=== PATIENT | male | born 1955 | race Caucasian/White ===

== ENCOUNTER → 2016-11-14 | Outpatient (CLI) | payer OTHER ==
--- NOTE | 2016-11-14 08:32 | US ---
Retroperitoneal Ultrasound History: Evaluate for abdominal aortic aneurysm, screening, , family history of abdominal aortic aneu rysm and coronary artery disease Findings: There is a minimal amount of atherosclerotic disease associated with a normal sized abdomin al aorta. Proximal aorta = 2.8 x 2.7 cm Mid aorta = 2.2 x 2.3 cm Distal aorta = 1.9 x 2 cm Right common iliac artery = 1.2 x 1.2 cm Left common iliac artery = 1 x 1 cm Impression: Early atherosclerotic disease. No aneurysm identified .
== END ==
LOC: BMCIMAGING 07:51
PROVIDERS: ATTEND Internal Medicine Cardiovascular Disease
DX: Z82.49 Family history of ischemic heart disease and other diseases of the circulatory system (principal); I25.10 Atherosclerotic heart disease of native coronary artery without angina pectoris; R07.9 Chest pain, unspecified; R00.2 Palpitations

== ENCOUNTER 2016-11-25 07:54 | Day surgery (SDC) | payer OTHER ==
[2016-11-25] MEDS ORDERED: FAMOTIDINE 20 MG TAB PO ONE (08:00)
[2016-11-25] MEDS ORDERED: DIAZEPAM 5 MG TAB PO ONE (08:00)
[2016-11-25] MEDS ORDERED: diphenhydrAMINE 25 MG CAP PO ONE (08:00)
[2016-11-25] MEDS ORDERED: ASPIRIN EC 325 MG TAB PO ONE (08:00)
[2016-11-25] MEDS ORDERED: NS 1,000 ML IV ONE (08:00)
--- NOTE | 2016-11-25 08:19 | CPEKG ---
Heart Rate: 89 RR Interval: 674 P-R Interval: 156 QRSD Interval: 88 QT Interval: 356 QTC Interval: 434 P Burke: 65 QRS Burke: 53 T Wave Burke: 18 EKG Severity - OTHERWISE NORMAL ECG - EKG Impression: SINUS ARRHYTHMIA, RATE 75-99 EKG Impression: VENTRICULAR PREMATURE COMPLEX Electronically Signed By: Brennan Chavez 25-Nov-2016 12:25:31
[2016-11-25 08:45] LABS: % IMMATURE GRANULYOCYTES 0.2 % (0.0-1.1); ABSOLUTE IMMATURE GRANULOCYTES 0.01 10^3/uL (0.00-0.10); ADD DIFF? NO; ADD MORPH? NO; ADD SCAN? NO; ATYPICAL LYMPHOCYTE FLAG 10 (0-99); FRAGMENT RBC FLAG 0 (0-99); HEMATOCRIT 45.4 % (40.0-51.0); HEMOGLOBIN 16.1 g/dL (13.7-17.5); LEFT SHIFT FLG 0 (0-99); LIPEMIA HEMOLYSIS FLAG 90 (0-99); MEAN CELL HEMOGLOBIN 30.5 pg (27.9-34.1); MEAN CELL HEMOGLOBIN CONCENTR. 35.5 g/dL (32.4-36.7); MEAN PLATELET VOLUME 9.1 fL (8.7-11.7); PLATELET CLUMPS FLAG 0 (0-99); PLATELET COUNT 207 10^3/uL (150-400); RED BLOOD CELL COUNT 5.28 10^6/uL (4.40-6.38); RED CELL DISTRIBUTION WIDTH 12.1 % (11.5-15.2)
[2016-11-25 08:57] LABS: INR 0.98 (0.83-1.16); PROTIME(PATIENT) 12.9 SEC (12.0-15.0)
[2016-11-25 09:05] LABS: ANION GAP 10 mEq/L (8-16); CALCIUM 9.5 mg/dL (8.5-10.4); CARBON DIOXIDE 26 mEq/l (22-31); CHLORIDE 106 mEq/L (97-110); CHOLESTEROL 135 mg/dL (140-220); CHOLESTEROL/HDL RATIO 2.45 RATIO (1.00-4.97); CREATININE 1.2 mg/dL (0.7-1.3); GLOMERULAR FILTRATION RATE > 60; GLUCOSE 96 mg/dL (70-100); HIGH DENSITY LIPOPROTEIN 55 mg/dL (40-65); LDL/HDL RATIO 1.18 RATIO (1.00-3.64); LOW DENSITY LIPOPROTEIN 65 mg/dL (80-100); MAGNESIUM 1.7 mg/dL (1.6-2.3); NON-HIGH DENSITY LIPOPROTEIN 80 mg/dL (90-129); POTASSIUM 4.7 mEq/L (3.5-5.2); SODIUM 142 mEq/L (134-144); TRIGLYCERIDE 76 mg/dL (40-150); VERY LOW DENSITY LIPOPROTEINS 15 mg/dL (8-25)
[2016-11-25] MEDS ORDERED: MIDAZOLAM 2 MG/2 ML VIAL ONE ×2 (09:17→09:52)
[2016-11-25] MEDS ORDERED: fentaNYL 100 MCG/2 ML INJ ONE (09:17)
[2016-11-25] MEDS ORDERED: HEPARIN 10,000 UNIT/10 ML MDV ONE (09:17)
[2016-11-25] MEDS ORDERED: LIDOCAINE 1% 30 ML SDV ONE (09:17)
[2016-11-25] MEDS ORDERED: VERAPAMIL 5 MG/2 ML VIAL ONE (09:17)
[2016-11-25] MEDS ORDERED: IOPAMIDOL (ISOVUE-370) 150 ML BTL IV ONE ×2 (09:17→09:52)
[2016-11-25] MEDS ORDERED: OXYCODONE/APAP 5/325 TAB PO PRN (11:08)
[2016-11-25] MEDS ORDERED: HYDROCODONE/APAP 5/325 TAB PO PRN (11:08)
[2016-11-25] MEDS ORDERED: ATROPINE SULFATE 1 MG/10 ML SYR IVP PRN (11:08)
[2016-11-25] MEDS ORDERED: ONDANSETRON 4 MG/2 ML VIAL IVP PRN (11:08)
[2016-11-25] MEDS ORDERED: NITROGLYCERIN 0.4 MG BTL SL PRN (11:08)
--- NOTE | 2016-11-25 15:38 | PDDXCAT ---
Diagnostic Cath Note - . Date: 11/25/16 Program Development Specialist: Jameson Indication: Class I/II angina, intolerance to med therapy or failure to respond High-risk criteria on non-invasive testing: stress-induced moderate-size multiple perfusion defects - Procedure Access: left wrist Procedure: left heart catheterization, coronary angiography, left ventriculogram , vein graft injection, DELONG injection, HERMINIA injection - Materials Left Heart Cath size: 5F Left Heart Cath materials: JL3.5, JR4.0, other (IM) - Findings-Left Heart Catheterization LM: 100% occluded LAD: 100% occluded: fed by the mammary artery LCX: 100% occluded RCA: Diffuse luminal regularities of 20%. No focal stenosis with patent stents Ramus: 100% occluded rSVG: widely patent to the obtuse marginal branch with retrograde filling of the circumflex system DELONG: widely patent to the LAD HERMINIA: widely patent to the ramus EDP: 13 mm of mercury LVEF: 65% Wall motion: small area of inferior akinesis Complications: technical difficulties: Inability to access the HERMINIA selectively Estimated blood loss: <50ml Closure method: TR Band Assessment: complete revascularization with patent left and right mammary arteries to the LAD and ramus with a patent vein graft to the circumflex. Patent RCA stenting. Severe coronary disease with occlusion of the left main. Normal left ventricular systolic function with normal filling pressures Plan: continue aggressive secondary prevention with clinical follow-up. Patient Problems: Problems Problem Status Diagnosed Coronary artery disease Acute
== END 2016-11-25 14:36 | disposition home or self-care (01) ==
LOC: FCATH 07:54
PROVIDERS: ATTEND Internal Medicine Interventional Cardiology
DX: I25.119 Atherosclerotic heart disease of native coronary artery with unspecified angina pectoris (principal); R00.2 Palpitations; R06.09 Other forms of dyspnea; I10 Essential (primary) hypertension; E78.5 Hyperlipidemia, unspecified; Z95.1 Presence of aortocoronary bypass graft; Z82.49 Family history of ischemic heart disease and other diseases of the circulatory system
CPT/HCPCS: 93005; 93459; C1769; J1644; J2250; J3010; Q9967

== ENCOUNTER → 2018-10-14 | Outpatient (CLI) | payer OTHER | LOC: FIMAGING 16:19 | DX: R22.41 Localized swelling, mass and lump, right lower limb (principal) ==

== ENCOUNTER → 2018-11-01 | Outpatient (CLI) | payer OTHER | LOC: FIMAGING 16:41 | DX: M79.604 Pain in right leg (principal); M79.89 Other specified soft tissue disorders; I80.01 Phlebitis and thrombophlebitis of superficial vessels of right lower extremity ==